=== PATIENT | female | born 1960 | race Caucasian/White ===

== ENCOUNTER → 2018-12-26 | Outpatient (CLI) | payer OTHER ==
--- NOTE | 2018-12-26 18:45 | CONS ---
Assessment/Plan Assessment/Plan Hospital Course (Demo Recall) This a 58-year-old female 1 week status post left comminuted patella fracture. The patella fracture is minimally displaced and has proven to be stable given the patient's continuation to walk. Therefore nonoperative management is most appropriate. However I stressed the patient that continued flexion and use of her extensor mechanism can result in further distraction of the fracture and needing surgery. I did explain this to her multiple times to make sure she understood this as she continued to flex her knee during the office visit. I once avoid using a cast as this was a stable fracture and I felt she would not tolerate the cast very well. Plan: Knee immobilizer left lower extremity patient should keep the knee extended at all times including sleeping. She can weight-bear as tolerated with knee locked in full extension. I like to see her back in 2 weeks with AP and lateral x-rays of the left knee. Like to start her With limited passive range of motion at 3 weeks if x-rays look good at next visit. An authorization for hinged knee brace will be placed. Consultation Date/Type/Reason Admit Date/Time Date of Consultation: Dec 26, 2018 Reason for Consultation Left patella fracture Date/Time of Note DATE: 12/26/18 TIME: 18:36 Hx of Present Illness This is a 58-year-old female who had a syncopal episode of unknown cause on December 21, 2018. She was seen in the emergency department and she sustained a left patella fracture. Patient states she was given a knee immobilizer however she has not used it and has been walking around and has been bending her knee more than 90 degrees. She states she has 6/10 pain. She feels much better than when she presented to the emergency department. She has no prior knee pain or history of injury. Pain is worsened by walking and stretching. She has been taking ibuprofen and using ice. She states she limps a little bit. Patient denies fever, chills, shortness of breath, chest pain, nausea/vomiting, constipation, diarrhea, numbness, and tingling. Past Medical History Osteoporosis Gastritis Home Meds Reported Medications [none] No Conflict Check 08/25/12 Allergies: Coded Allergies: No Known Allergy (Unverified , 08/25/12) Past Surgical History Past Surgical Hx: noncontributory Family History Significant Family History: no pertinent family hx Social History Alcohol Use: none Smoking Status: Never smoker Drug Use: none Exam/Review of Systems Exam Vitals Weight: 93 pounds Height: 5 feet 2 inches Temperature: 90.2 Heart Rate: 58 Blood Pressure: 142/77 Respiratory Rate: 12 Exam General: Awake, alert, in no acute distress, pleasant and cooperative Heart: regular rhythm Lungs: breathing comfortably, no tachypnea or dyspnea MUSCULOSKELETAL: When walking to the room the patient was found to have her left knee flexed to 90 degrees. Throughout the examination she continued to flex her knee despite my efforts to keep her knee in full extension. Left lower extremity: Skin intact. There is a left knee effusion and subcutaneous swelling with ecchymosis over the patella. There is tenderness palpation over the patella. Sensation intact to light touch in a sural, saphenous, deep peroneal, superficial peroneal, medial and lateral plantar nerve distribution. Motor is intact, patient able to dorsiflex and plantarflex ankle and extend and flex great toe. Dorsalis Pedis pulse +2, Brisk capillary refill. Compartments are soft. Calves non-tender to palpation bilaterally. Imaging Imaging X-rays of the left knee from the outside hospital reviewed. These include an AP, lateral, merchant view. Demonstrate a comminuted left patella fracture minimally displaced. AP and lateral x-rays of the left knee were obtained in clinic today and compared to previous x-rays. X-rays read demonstrate a comminuted left patella fracture. There is a transverse fractures of both the superior and distal pole of the patella. There are minimally displaced. There is slightly more distracted chin and the distal fragment when comparing to previous x-rays. HIGINIO MAR MD Dec 26, 2018 18:45
--- NOTE | 2018-12-27 18:29 | RADRPT ---
PROCEDURE: XR Left Knee. CLINICAL INDICATION: Trauma. Left knee pain. TECHNIQUE: Two views. Frontal and lateral. COMPARISON: No prior studies are available for comparison. FINDINGS: There is an acute nondisplaced comminuted transverse fracture through the patella. There is no other fracture and there is no dislocation. Articular surfaces are otherwise intact. There is soft tissue swelling overlying the fracture. There are degenerative changes with small osteophytes arising from the medial joint compartment suyapa ns and the superior patella. There is no lytic or blastic lesion. There is no radiopaque foreign body. IMPRESSION: 1. Acute nondisplaced comminuted transverse fracture of the patella with overlying soft tissue swell ing. 2. Otherwise unremarkable images of the left knee. RPTAT: QQ .Alec Rose MD, Date Time Electronically viewed and signed by .Alec Rose MD, on 12/27/2018 18:29 .R/
== END | disposition home or self-care (01) ==
LOC: HKI 14:08
PROVIDERS: ATTEND Orthopaedic Surgery Adult Reconstructive Orthopaedic Surgery
DX: S82.042D Displaced comminuted fracture of left patella, subsequent encounter for closed fracture with routine healing (principal); W19.XXXD Unspecified fall, subsequent encounter; M81.0 Age-related osteoporosis without current pathological fracture
CPT/HCPCS: 73560; Z7500; G0463

== ENCOUNTER → 2019-01-09 | Outpatient (CLI) | payer OTHER ==
--- NOTE | 2019-01-10 08:25 | RADRPT ---
PROCEDURE: Left knee series CLINICAL INDICATION: Pain TECHNIQUE: AP and lateral views of the right knee COMPARISON: 12/26/2018 left knee series FINDINGS: Again demonstrated is the acute to subacute comminuted, closed, not significantly displaced complex f racture of the patella. Mild knee effusion and prepatellar soft tissue swelling is noted. Fracture li ashly are still visible without definite evidence for periosteal reaction at this time. Normal mineralization is noted. IMPRESSION: 1. Acute to subacute, closed, comminuted, not significantly displaced, complex patellar fracture wit hout evidence for periosteal reaction at this time. 2. Small left knee effusion and prepatellar soft tissue swelling RPTAT:CHOOLHOM .Leila Ornelas MD, MD Date Time Electronically viewed and signed by .Leila Ornelas MD, on 01/10/2019 08:25 .C/
--- NOTE | 2019-01-10 20:45 | CONS ---
Consult Date/Type/Reason Admit Date/Time Initial Consult Date Date/Time of Note DATE: 01/10/19 TIME: 20:40 Subjective 58-year-old female 3 weeks status post left patella fracture. She was first seen 2 weeks ago and is being treated nonoperatively. Patient was allowed to bear weight with knee locked in full extension. However the patient has not been wearing the brace at all times. And she has been walking excessively. She is walking 2-3 miles a day in the brace. Patient denies any pain. She is frustrated about the restrictions. She is currently looking for work. States she is unable to look for work secondary to the fracture being in the brace. Denies numbness and tingling. Denies fevers and chills. Objective Exam General: Awake, alert, in no acute distress, pleasant and cooperative Heart: regular rhythm Lungs: breathing comfortably, no tachypnea or dyspnea MUSCULOSKELETAL: When walking to the room the patient was found to have her left knee flexed to 90 degrees. Throughout the examination she continued to flex her knee despite my efforts to keep her knee in full extension. Left lower extremity: Skin intact. There is a left knee effusion and subcutaneous swelling with ecchymosis over the patella. There is tenderness palpation over the patella. Sensation intact to light touch in a sural, saphenous, deep peroneal, superficial peroneal, medial and lateral plantar nerve distribution. Motor is intact, patient able to dorsiflex and plantarflex ankle and extend and flex great toe. Dorsalis Pedis pulse +2, Brisk capillary refill. Compartments are soft. Calves non-tender to palpation bilaterally. Results/Medications Home Meds Reported Medications [none] No Conflict Check 08/25/12 Imaging Imaging Imaging AP and lateral x-rays of the left knee were obtained in clinic today and c ompared to previous x-rays. X-rays read demonstrate a comminuted left patella fracture. There is a transverse fractures of both the superior and distal pole of the patella. There are minimally displaced. No further distraction when compared to previous x-rays. Assessment/Plan Hospital Course (Demo Recall) 88-year-old female 3 weeks status post left patella fracture. It is minimally displaced and is being treated. Patient is not compliant with the instructions and restrictions. I had a long discussion with her about why we do these restrictions and how it will be progressed over the healing process. I am not sure if she fully understands the instructions. However this is a stable fracture and I am hesitant to put her in a cast. Therefore we will continue the hinged knee brace. She should keep the brace locked in full extension at all times. She is weightbearing as tolerated. She should limit walking to which she needs to do and not walk excessively. Follow-up 3 weeks with x-rays. At that time we will likely start to mobilize the patient. HIGINIO MAR MD Jan 10, 2019 20:45
== END | disposition home or self-care (01) ==
LOC: HKI 14:57
PROVIDERS: ATTEND Orthopaedic Surgery Adult Reconstructive Orthopaedic Surgery
DX: S82.002D Unspecified fracture of left patella, subsequent encounter for closed fracture with routine healing (principal); X58.XXXD Exposure to other specified factors, subsequent encounter
CPT/HCPCS: 73560; Z7500; G0463

== ENCOUNTER → 2019-01-30 | Outpatient (CLI) | payer OTHER ==
--- NOTE | 2019-01-30 15:44 | CONS ---
Consult Date/Type/Reason Admit Date/Time Initial Consult Date Date/Time of Note DATE: 01/30/19 TIME: 15:40 Subjective 58-year-old female approximately 6 weeks status post left nondisplaced patella fracture. This is been treated nonoperatively. She has been wearing the brace and ambulating with the brace locked in extension as instructed. She has been performing range of motion exercises for the last few weeks beyond her previous instructions. She has been ranging 0-90 degrees without any issue. She denies any pain. States swelling has decreased. Objective Vitals Weight: 94 pound Height: 5 foot 2 inches Temperature: 90.1 Heart Rate: 61 Blood Pressure: 123/72 Respiratory Rate: 12 Exam General: Awake, alert, in no acute distress, pleasant and cooperative Heart: regular rhythm Lungs: breathing comfortably, no tachypnea or dyspnea MUSCULOSKELETAL: When walking to the room the patient was found to have her left knee flexed to 90 degrees. Range of motion 0-90 degrees without any pain. Left lower extremity: Skin intact. There is a left knee effusion and subcutaneous swelling with ecchymosis over the patella. There is tenderness palpation over the patella. Sensation intact to light touch in a sural, saphenous, deep peroneal, s uperficial peroneal, medial and lateral plantar nerve distribution. Motor is intact, patient able to dorsiflex and plantarflex ankle and extend and flex great toe. Dorsalis Pedis pulse +2, Brisk capillary refill. Compartments are soft. Calves non-tender to palpation bilaterally. Results/Medications Home Meds Reported Medications [none] No Conflict Check 08/25/12 Imaging AP and lateral x-rays of the left knee were obtained in clinic today and compar ed to previous x-rays. X-rays read demonstrate a comminuted left patella fracture. There is a transverse fractures of both the superior and distal pole of the patella. There are minimally displaced. There is interval healing. No further distraction when compared to previous x-rays. Assessment/Plan Hospital Course (Demo Recall) 58-year-old female 6 weeks status post left patella fracture. It is minimally displaced and is being treated nonoperatively. She should keep the brace locked in full extension when ambulating and weightbearing as tolerated. When not ambulating she can perform range of motion exercises 0-90 degrees. Follow-up 3 weeks with x-rays. At that time if x-rays look good we will likely allow patient to unlock the brace to 45 degrees when ambulating. After that she will follow-up in additional 3 weeks which will be approximately 12 weeks status post injury and if everything looks good at that time we will likely discontinue the brace. HIGINIO MAR MD Jan 30, 2019 15:44
--- NOTE | 2019-02-01 08:56 | RADRPT ---
PROCEDURE: Knee series CLINICAL INDICATION: Pain TECHNIQUE: AP and lateral views left knee were obtained COMPARISON: Left knee series 01/09/2019 FINDINGS: Healing comminuted left patellar fracture. No other fractures or dislocation. No focal bony blastic l ytic lesion. No evidence left knee joint effusion. Soft tissues are unremarkable. IMPRESSION: Healing left patellar fracture without other fracture dislocation or joint effusion. RPTAT:AAJJ Physician Ruby Date Time Electronically viewed and signed by Enriqueta Uriostegui Physician on 02/01/2019 08:56 /
== END | disposition home or self-care (01) ==
LOC: HKI 14:57
PROVIDERS: ATTEND Orthopaedic Surgery Adult Reconstructive Orthopaedic Surgery
DX: S82.002D Unspecified fracture of left patella, subsequent encounter for closed fracture with routine healing (principal); X58.XXXD Exposure to other specified factors, subsequent encounter
CPT/HCPCS: 73560; Z7500; G0463

== ENCOUNTER → 2019-02-20 | Outpatient (CLI) | payer OTHER ==
--- NOTE | 2019-02-20 16:35 | CONS ---
Consult Date/Type/Reason Admit Date/Time Initial Consult Date Date/Time of Note DATE: 02/20/19 TIME: 16:27 Subjective 58-year-old female 9 weeks status post left nondisplaced comminuted patella fracture. She has not been using her hinged knee brace that much. She is mostly walking without it. She is been doing full range of motion. Denies any pain. She has not been using stairs or participating in any significant activity except for walking. Objective Vitals Weight: 94 pound Height: 5 foot 3 inches Temperature: 90.1 Heart Rate: 52 Blood Pressure: 154/85 Respiratory Rate: 12 Exam General: Awake, alert, in no acute distress, pleasant and cooperative Heart: regular rhythm Lungs: breathing comfortably, no tachypnea or dyspnea MUSCULOSKELETAL: Left lower extremity: Skin intact. No joint effusion. No swelling around the knee. No ecchymosis. Nontender to palpation throughout the patella. Full range of motion of the knee 0 to 140 degrees. Stable to ligamentous testing. Sensation intact to light touch in a sural, saphenous, deep peroneal, superficial peroneal, medial and lateral plantar nerve distribution. Motor is intact, patient able to dorsiflex and plantarflex ankle and extend and flex great toe. Dorsalis Pedis pulse +2, Brisk capillary refill. Compartments are soft. Calves non-tender to palpation bilaterally. Results/Medications Home Meds Reported Medications [none] No Conflict Check 08/25/12 Imaging AP and lateral of the left knee were obtained today. These were compared to previous x-rays. There continues to be a visible fracture line of the patella, although is decreased from previous imaging. However there is no distraction or further displacement compared to previous x-rays. Assessment/Plan Hospital Course (Demo Recall) 58-year-old female 9 weeks status post nondisplaced comminuted left patella fracture. She is clinically healed. At this time allow her to perform range of motion exercises as tolerated. Her strength and quad control is good. She no longer needs to use a hinged knee brace to walk. This time I would like her to continue to avoid stairs or any strenuous activity for another 3 to 4 weeks. Follow-up in 3 to 4 weeks with AP and lateral of the left knee. If x-rays this time and clinical examination at this time are good she will be follow-up PRN ZAID,HIGINIO MD Feb 20, 2019 16:35
--- NOTE | 2019-02-22 10:48 | RADRPT ---
PROCEDURE: XR left knee CLINICAL INDICATION: Knee pain. TECHNIQUE: Three views of the left knee were obtained. COMPARISON: 01/30/2019 FINDINGS: There is a displaced left patellar fracture with intra-articular extension, unchanged in alignment si nce the prior examination. There is a small joint effusion along with mild prepatellar soft tissue sw elling. The remaining osseous structures are intact and well aligned. Mild degenerative changes are s een at the knee. IMPRESSION: 1. Displaced left patellar fracture with intra-articular extension, unchanged in alignment since the prior exam. 2. Small joint effusion along with mild prepatellar soft tissue swelling, post-traumatic. RPTAT: AAEE Physician Dania Date Time Electronically viewed and signed by Physician Dania on 02/22/2019 10:47 RF/
== END | disposition home or self-care (01) ==
LOC: HKI 14:45
PROVIDERS: ATTEND Orthopaedic Surgery Adult Reconstructive Orthopaedic Surgery
DX: S82.002D Unspecified fracture of left patella, subsequent encounter for closed fracture with routine healing (principal); X58.XXXD Exposure to other specified factors, subsequent encounter
CPT/HCPCS: 73560; Z7500; G0463

== ENCOUNTER → 2019-03-15 | Outpatient (CLI) | payer OTHER ==
--- NOTE | 2019-03-15 19:45 | CONS ---
Consult Date/Type/Reason Admit Date/Time Initial Consult Date Date/Time of Note DATE: 03/15/19 TIME: 19:43 Subjective 58-year-old female following up today 12 weeks after left nondisplaced patella fracture. She has been treated nonoperatively. Last visit she was doing very well not requiring any bracing. Today she returns in the hope that this will be her last appointment. She has 0/10 pain. She has been doing all activities as tolerated. She has no complaints. Denies any swelling. Objective Exam General: Awake, alert, in no acute distress, pleasant and cooperative Heart: regular rhythm Lungs: breathing comfortably, no tachypnea or dyspnea MUSCULOSKELETAL: Left lower extremity: Skin intact. There is no joint effusion. Nontender to palpation throughout the knee and patella. Full range of motion is 01 40. Stable to varus and valgus stress throughout range of motion. Stable in the anterior and posterior plane with negative Chris's and posterior drawer. Sensation intact to light touch in a sural, saphenous, deep peroneal, superficial peroneal, medial and lateral plantar nerve distribution. Motor is intact, patient able to dorsiflex and plantarflex ankle and extend and flex great toe. Dorsalis Pedis pulse +2, Brisk capillary refill. Compartments are soft. Calves non-tender to palpation bilaterally. Results/Medications Home Meds Reported Medications [none] No Conflict Check 08/25/12 Imaging AP and lateral imaging of the left knee was obtained today and personally reviewed: Demonstrates healed nondisplaced comminuted patella fracture. Assessment/Plan Hospital Course (Demo Recall) 58-year-old female 12 weeks status post for placed comminuted left patella fracture. She is doing very well. She is clinically and radiographically healed. She requires no further restrictions. A work release note was given to the patient. She can return to work or work at any job without any restrictions. She is to follow-up PRN. HIGINIO MAR MD March 15, 2019 19:45
--- NOTE | 2019-03-16 11:06 | RADRPT ---
PROCEDURE: Left knee series CLINICAL INDICATION: Pain TECHNIQUE: AP and lateral weightbearing views of the left knee were obtained COMPARISON: Left knee series 02/20/2019 FINDINGS: Continued healing left patellar fracture. Mild soft tissue swelling along the anterior left knee. No definite left knee joint effusion. No other fractures or dislocations. Mild degenerate joint disease left knee. No focal bony blastic or lytic lesions. IMPRESSION: 1. Continued healing left patellar fracture without other fractures or dislocations. 2. Mild degenerate joint disease left knee. 3. Mild soft tissue swelling along the anterior left knee with no definite left knee joint effusion. RPTAT:AAJJ Physician Ruby Date Time Electronically viewed and signed by Physician Ruby on 03/16/2019 11:06 /
== END | disposition home or self-care (01) ==
LOC: HKI 14:58
PROVIDERS: ATTEND Orthopaedic Surgery Adult Reconstructive Orthopaedic Surgery
DX: S82.002D Unspecified fracture of left patella, subsequent encounter for closed fracture with routine healing (principal); X58.XXXD Exposure to other specified factors, subsequent encounter
CPT/HCPCS: 73560; Z7500; G0463